=== PATIENT | male | born 1990 | race American Indian/Alaskan Native ===

== ENCOUNTER 2019-08-19 08:43 | Emergency (ER) | payer OTHER ==
[~2019-08-19] VITALS: Ht 182.9 cm; Wt 81.7 kg
[~2019-08-19 08:43] MED LIST: AZIT250 PO; Amoxicillin500 MG PO; Bactrim Ds Tab1 EACH PO; CODACE30 PO; COMPAZINE10 MG PO; CRUTCH4 USE; DEXMETHYLPHENIDATE; HYDACE5 PO; HYDGUAL120 PO; IBUP400 PO; IBUP800 PO; MUPI2TC TOP; PENVK500 PO; Pepcid40 MG PO; RXCODACET PO; TRAZ100 PO
[2019-08-19] MEDS ORDERED: Ultram50 MG PO (09:59)
== END 2019-08-19 10:21 | disposition home or self-care (01) ==
LOC: ER 08:43
DX: S20.212A Contusion of left front wall of thorax, initial encounter (principal); X58.XXXA Exposure to other specified factors, initial encounter; Y93.72 Activity, wrestling; F17.210 Nicotine dependence, cigarettes, uncomplicated
CPT/HCPCS: 71046; 99284-25

== ENCOUNTER 2022-05-15 17:47 | Emergency (ER) | payer OTHER ==
[~2022-05-15] VITALS: Ht 185.4 cm; Wt 68.0 kg
[~2022-05-15 17:47] MED LIST changes: +Ultram50 MG PO
== END 2022-05-15 20:31 | disposition home or self-care (01) ==
LOC: ER 17:47
DX: S83.91XA Sprain of unspecified site of right knee, initial encounter (principal); X50.1XXA Overexertion from prolonged static or awkward postures, initial encounter; F17.210 Nicotine dependence, cigarettes, uncomplicated
CPT/HCPCS: 73564; A9270

== ENCOUNTER 2023-03-08 19:15 | Emergency (ER) | payer OTHER ==
[~2023-03-08] VITALS: Ht 185.4 cm; Wt 72.6 kg
[2023-03-08 19:46] VITALS: BP 141/97
== END 2023-03-08 20:26 | disposition home or self-care (01) ==
LOC: ER 19:15
DX: S83.91XA Sprain of unspecified site of right knee, initial encounter (principal); F17.210 Nicotine dependence, cigarettes, uncomplicated; V19.9XXA Pedal cyclist (driver) (passenger) injured in unspecified traffic accident, initial encounter
CPT/HCPCS: 73562-RT; 99283-25; A9270

== ENCOUNTER 2023-11-15 17:07 | Emergency (ER) | payer OTHER ==
[~2023-11-15] VITALS: Ht 185.4 cm; Wt 72.6 kg
[2023-11-15 17:48] LABS: BASOPHILS ABSOLUTE AUTO 0.12 K/mm3 (0.00-0.23); BASOPHILS PERCENT AUTO 1 % (0-2); EOSINOPHILS ABSOLUTE AUTO 0.08 K/mm3 (0.00-0.68); EOSINOPHILS PERCENT AUTO 1 % (0-6); Hematocrit 39.7 % (37.0-53.0); IMMATURE GRAN ABSOLUTE AUTO 0.03 K/mm3 (0.00-0.10); IMMATURE GRAN PERCENT AUTO 0 % (0-1); LYMPHOCYTES ABSOLUTE AUTO 1.37 K/mm3 (0.84-5.20); LYMPHOCYTES PERCENT AUTO 10 % (21-46); MONOCYTES ABSOLUTE AUTO 1.24 K/mm3 (0.16-1.47); MONOCYTES PERCENT AUTO 9 % (4-13); Mean Corpuscular HGB 28.6 pg (26.0-34.0); Mean Corpuscular HGB Conc 32.7 g/dL (31.5-36.5); Mean Corpuscular Volume 87 fL (80-100); Mean Platelet Volume 8.9 fL (9.1-12.4); NEUTROPHILS ABSOLUTE AUTO 11.45 K/mm3 (1.96-9.15); NEUTROPHILS PERCENT AUTO 80 % (41-73); Platelet Count 502 K/mm3 (150-400); RDW Coefficient Variation 14.1 % (11.7-14.2); RDW Standard Deviation 44.1 fL (35.1-46.3); Red Blood Cell Count 4.55 M/mm3 (4.30-5.90); White Blood Cell Count 14.29 K/mm3 (4.00-11.30)
[2023-11-15 18:12] LABS: Influenza A, PCR NEGATIVE (NEGATIVE); Influenza B, PCR NEGATIVE (NEGATIVE); Resp Syncytial Virus, PCR NEGATIVE (NEGATIVE); SARS-Cov-2 (COVID-19) PCR, MMC NEGATIVE (NEGATIVE)
[2023-11-15 18:14] LABS: Albumin, Blood 3.8 g/dL (3.4-5.0); Albumin/Globulin Ratio 0.9 (0.8-1.8); Bilirubin, Total 0.5 mg/dL (0.1-1.0); Bun/Creatinine Ratio 19.9 (12.0-20.0); Creatinine, Blood 0.81 mg/dL (0.60-1.20); Globulin, Blood 4.1 g/dL (2.2-4.0); Magnesium, Blood 1.9 mg/dL (1.6-2.4); Potassium, Blood 4.9 mmol/L (3.5-5.5); Total Protein, Blood 7.9 g/dL (6.4-8.2)
[2023-11-15 19:58] VITALS: BP 119/77
== END 2023-11-15 23:00 | disposition home or self-care (01) ==
LOC: ER 17:07
PROVIDERS: Physician Assistant
DX: R06.02 Shortness of breath (principal); Z20.822 Contact with and (suspected) exposure to COVID-19; F17.210 Nicotine dependence, cigarettes, uncomplicated
CPT/HCPCS: 0241U; 71046; 80053; 83735; 85025; 94644; 94664; 99284-25

== ENCOUNTER 2025-03-21 21:52 | Emergency (ER) | payer OTHER ==
[~2025-03-21] VITALS: Ht 177.8 cm; Wt 72.6 kg
[~2025-03-21 21:52] MED LIST changes: +CEPH500 PO; +SULTRIDS PO
[2025-03-21 22:07] VITALS: BP 121/76
[2025-03-22] MEDS ORDERED: Tobramycin 0.3% Opth Soln 5 ML RIGHTEYE ONE (00:25)
[2025-03-22] MEDS ORDERED: TOBRADEX ST EYE5 M1 RIGHTEYE (00:28)
== END 2025-03-22 01:00 | disposition home or self-care (01) ==
LOC: ER 21:52
DX: H10.9 Unspecified conjunctivitis (principal); B96.89 Other specified bacterial agents as the cause of diseases classified elsewhere; F17.210 Nicotine dependence, cigarettes, uncomplicated
CPT/HCPCS: 99283; A9270